=== PATIENT | female | born 1950 | race Caucasian/White ===

== ENCOUNTER 2023-03-15 14:16 | Emergency (ER) | payer OTHER ==
--- OUTSIDE RECORDS SUMMARY | 2023-03-15 14:19 | XMS REPORT | Continuity of Care Document ---
:1950 Author Organization [facility] t Address [address] [place] [address] [address] [place] [address] Care Team Providers Name Role Phone Tamara Malone Attending Clinician Unavailable Izaiah Hilliard Attending Clinician Unavailable KAE WELLS Attending Clinician Unavailable Claudy Mcneil Admitting Clinician Unavailable Physician, No Primary or Family Admitting Clinician Unavaila ble Payers Payer Name Policy Type Policy Number Effective Date Expiration Date S ource Problems This patient has no known problems. Allergies, Adverse Reactions, Alerts Allergy Allergy Status Severity Reaction(s) Onset Inactive Treating Comm ents Source Name Type Date Date Clinician codeine DA Active [place] ITCHY 2021-0 [facility] 8-07 [facility] 00:00: Elaine [facility] codeine DA Active [place] [facility] 1- [place] 00:00: Elaine [facility] codeine DA Active [place] [facility] [facility] 12-02 [facility] 00:00: Elaine [facility] codeine DA Active [place] 2019-0 [facility] 3-25 [facility] 00:00: Elaine [facility] codeine DA Active [place] [facility] [facility] 3- [place] 00:00: Elaine[address] codeine DA Active [place] 2019-0 [facility] 3-29 [facility] 00:00: [facility] codeine DA Active [place] [facility] 2018-0 [facility] 3-29 Corpus 00:00: [facility] phenazop DA Active [place] 2015-0 [facility] yridine 08-03 Corp[facility] 00:00: [facility] codeine DA Active [place] 2015-0 [facility] 9- Corp[place] 00:00: [facility] Medications This patient has no known medications. Procedures This patient has no known procedures. Encounters Start End Encounter Admission Attending Care Care Encounter Source Date/Time Date/Time Type Type Clinicians Facility Department ID 2022-06-10 2022-06-10 Emergency EM [place], [facility] [id number] [facility] 13:54:00 17:31:00 Tamara [id number] [facility] 2022-06-10 2022-06-10 Emergency EM [place], [facility] ER [id number] [facility] 13:54:00 17:31:00 Tamara 09 [facility] 2022-02-06 2022-02-07 Emergency EM [facility], [facility] ER [id number] [facility] 17:40:00 00:35:00 Izaiah 46 [facility] 2020-12-02 2020-12-05 Inpatient [facility] ER [id number] [facility] 15:54:00 01:14:01 81 [facility] 2020-10-17 2020-10-20 Inpatient [facility] ER [id number] [facility] 14:51:00 00:12:54 66 [facility] 2020-01-27 2020-02-03 Inpatient [facility] ER [id number] [facility] 13:01:00 13:28:27 08 [facility] 2019-11-23 2019-11-23 Outpatient EL PRISCILLA, [facility] [id number] [facility] 15:19:00 15:19:00 KAE 39 [facility] 2019-11-11 2019-11-19 Inpatient [facility] ER [id number] [facility] 16:35:00 08:30:43 20 [facility] Results Test Description Test Time Test Comments Results Result Comments Source BASIC METABOLIC PANEL 2022-06-10 16:26:00 Test Item Value Reference Range Interpretation Comme nts SODIUM (test code = NA) 138 MMOL/L 133-145 N POTASSIUM (test code = K) 4.1 MMOL/L 3.6-5.2 N CHLORIDE (test code = CL) 102 MMOL/L 100-108 N CARBON DIOXIDE (test code = 28 MMOL/L 22-32 N CO2) GLUCOSE (test code = GLU) 102 MG/DL 65-99 H Re sults of this assay method may be falsely depressed orelevated if p atient is taking sulfasalazine. BLOOD UREA NITROGEN (test code 15 MG/DL 6-20 N = BUN) GLOMERULAR FILTRATION RATE 53 39-90 N R eporting units: (test code = GFR) mL/min/1.7 3m\\S\\2 (Modified MDRD Formula) CREATININE (test code = CREAT) 1.02 MG/DL 0.60-1.00 H CALCIUM (test code = CA) 8.8 MG/DL 8.7-10.5 N [id number] 16:26:00 Test Item Value Reference Range Interpretation Comments LIPASE (test code = LIP) 138 Units/L 73-393 N [id number] 16:26:00 Test Item Value Reference Range Interpretation Comments MAGNESIUM (test code = MAG) 1.8 MG/DL 1.8-2.4 N NT PRO-BRAIN NATRIURETIC [id number] 16:26:00 Test Item Value Reference Range Interpretation Comments NT PRO-BRAIN 95 PG/ML 0-125 N Results of this assay NATRIURETIC PEPTI (test meth od may be falsely code = PROBNP) depressed ore levated if patient is t aking high doses of B iotin. TROP-I HIGH [id number] 16:26:00 Test Item Value Reference Range Interpretation Comments TROP-I HIGH 6 ng/L < 51 Results above 51 for SENSITIVITY (test code femal es and 76 for males = TROPIHS) are consistent with IFCC Committee recom mendations to use the 99th percentile of a normal population as a reference decision-limit. - The use of serial sampl ing and testing protoco l is a recommended pra ctive.- An elevated high sensitiveity tr oponin level alone is often not sufficient for diagnosis of myocardial infarction.- In order to distinguish acu te elevations of h igh sensitivity tro ponin from other clinical conditions, the [place] Defin ition of Myocardial Infa rction stresses clinic al assessment and demonstration o f a rise and/or fall in serial troponin result s above the upper refer ence limit.Results o f this assay method ma y be falsely depress ed orelevated if p atient is taking high dos es of Biotin. Coronavirus 2019 nCoV [id number] 15:53:00 Test Item Value Reference Range Interpretation Comments Coronavirus 2019 Negative Negative ID NOW COVI D-19 assay nCoV Bedside (test performed on the ID NOW code = [id number]) Instrum ent kristel rapid molecular in vi tro diagnostic test utilizing anisothermal nu cleic acid amplification t echnology intendedfor the qualitative det ection of nucleic acid fr om ptcBXFU-[id number]-4 v iral RNA in direct nasal , nasopharyngeal orthroat swabs and nasal , nasopharyngeal or throat swabseluted in viral transport media from individuals who aresuspected of COVID-19 by their health care provider. Negat jaret results should be treated as presumptive and, ifinconsistent with clinical signs and symptoms or nec essaryfor patient managem ent, should be teste d with differentauthor ized or cleared molecul ar tests. Negative result s donot preclude SARS-C oV-2 infection and s hould not be used asthe s ole basis for patient man agement decisions. Negativeresults should be considered in t he context of a patient'sr ecent exposures, hist ory and presence of cli nical signs andsympto ms consistent with COVID-19.Result s are for the identificat ion of SARS-CoV-2 RNA. For Use Under an Emerge ncy Use Authorization ( EUA) Only Negative result s do not preclude SARS-C oV-2 infection andsh ould not be used as the sole basis for patient managementdecis ions. Negative result s must be combined with clinicalobserva tions, patient history , and epidemiological informatio n. CBC W/AUTO [id number] 15:49:00 Test Item Value Reference Range Interpretation Comments WHITE BLOOD CELL (test code = 5.75 x10 3/uL 4.80-10.80 N WBC) RED BLOOD CELL (test code = 4.61 x10 6/uL 4.2-5.4 N RBC) HEMOGLOBIN (test code = HGB) 13.4 G/DL 12.0-16.0 N HEMATOCRIT (test code = HCT) 40.7 % 37-47 N MEAN CELL VOLUME (test code = 88.3 FL 81-99 N MCV) MEAN CELL HGB (test code = MCH) 29.1 PG 27-31 N MEAN CELL HGB CONCENTRATION 32.9 G/DL 33-37 L (test code = MCHC) RED CELL DISTRIBUTION WIDTH 15.2 % 11.5-14.5 H (test code = RDW) PLATELET COUNT (test code = 171 x10 3/uL 150-450 N PLT) MEAN PLATELET VOLUME (test code 10.4 FL 7.4-10.4 N = MPV) NEUTROPHIL % (test code = NT%) 63.0 % 42-86 N IMMATURE GRANULOCYTE % (test 0.3 % 0.0-2.0 N code = IG%) LYMPHOCYTE % (test code = LY%) 19.1 % 24-44 L MONOCYTE % (test code = MO%) 15.5 % 0.0-4.0 H EOSINOPHIL % (test code = EO%) 1.4 % 0.0-2.7 N BASOPHIL % (test code = BA%) 0.7 % 0.0-0.5 H NUCLEATED RBC % (test code = 0.0 % 0.0-0.0 N NRBC%) NEUTROPHIL # (test code = NT#) 3.62 x10 3/uL 1.8-7.7 N IMMATURE GRANULOCYTE # (test 0.02 x10 3/uL 0.00-0.03 N code = IG#) LYMPHOCYTE # (test code = LY#) 1.10 x10 3/uL 1.0-4.8 N MONOCYTE # (test code = MO#) 0.89 x10 3/uL 0.0-0.8 H EOSINOPHIL # (test code = EO#) 0.08 x10 3/uL 0.0-0.5 N BASOPHIL # (test code = BA#) 0.04 x10 3/uL 0.0-0.2 N NUCLEATED RBC # (test code = 0.0 X10 3/uL 0.0-0.2 N NRBC#) - XR CHEST 1 [id number] 14:52:00 [facility] 1950 Sex: F Patient Name: VENKAT PANDEY Unit No: [id number] EXAMS: CPT CODE: [id number] XR CHEST 1 V 48907 Reason: SOB EXAM: - XR CHEST 1 V COMPARISON: None available at the time of interpretation. LOCATION: HISTORY: SOB FINDINGS: Single view of the chest. No indwelling lines or tubes. No pneumothorax. The lungs are clear without significant effusions. The mediastinal contours are unremarkable/unchanged. No acute osseous findings are present. IMPRESSION: No acute cardiopulmonary abnormality. at 1452 Reported and signed by: Dedrick Preston MD CC: Odalys MONTERROSO; Tamara Malone MD Technologist: Huyen Ryder (Krista) RT Trscrpt Dt/ (1452)t.SDR.HV2 Orig Print D/T: S: 06/10/2022 (1455) [facility] NAME: VENKAT PANDEY [address]: Tamara [place] [address] : 1950 AGE: 71 SEX: F LOC: [place] PHONE #: [phone] EXAM DATE: 06/10/2022 STATUS: PRE ER FAX #: RAD NO: DC D t: PAGE 1 Signed Report- CT MAXIFAC W/O [id number] 21:07:00 [facility] : 1950 Sex: F Patient Name: VENKAT PANDEY Unit No: [id number] Report Has Been Amended EXAMS: CPT CODE: [id number] [place] MAXIFAC [place] [address] Reason: contusion of face Addendum - 02/06/2022 SIGNED 02/06/2022 ADDENDUM: [id number] CT/[id number] Addendum: Three-D reformatted images are provided after original interpretation. Additional 3-D volume rendered images do not change the original interpretation. at 2107 Reported and signed by: Tim Mead MD Report EXAM: CT FACIAL BONES WITHOUT CONTRAST INDICATION: CONTUSION OF FACE COMPARISON: None available TECHNIQUE: Axial CT imaging of the facial bones was obtained without administration of intravenous contrast. Coronal and sagittal reconstructions were submitted for review. IV contrast: None. DLP: 2120.97 mGy-cm DISCUSSION: No acute fracture is identified. There is a lucency throughthe left coronoid process which may represent an age-indeterminate fracture. The temporomandibular joints are well-aligned. The nasal bones are normal. The nasal septum is intact and deviated to the right. There is mild soft tissue thickening within the nasal cavity. The paranasal sinuses and mastoidair cells are clear. The orbits and globes are intact. There is no intraconal hematoma. No soft tissue abnormality or radiopaque foreign body is identified. IMPRESSION: Age-indeterminate fracture of the left coronary process of the mandible. Otherwise the mandible is unremarkable with normal-appearing temporomandibular joints. Rightward deviation of the nasal septum. LOCATION: B2 This CT exam was performed according to our departmental dose optimization program, which includes automated exposure con trol, adjustment of the mA and or kV according to patient size and/or use of [facility] NAME: VENKAT PANDEY [address]: [place] [address] : 1950 AGE: 71 SEX: F LOC: [place] PHONE #: [phone] EXAM DATE: 02/06/2022 STATUS: REG ER FAX #: RAD NO: DC Dt: PAGE 1 Signed Report (CONTINUED) Patient Name: VENKAT PANDEY Unit No: [id number] Report Has Been Amended EXAMS: CPT CODE: [id number] CT MAXIFAC [place] [address] (Continued) Reason: contusion of face iterative reconstruction technique. at 1833 Reported and signed by: Niru Blackmon MD CC: Claudy Mcneil MD; Mary Huerta DO Technologist: Elodia Troncoso CT; Janel Mena CT Trscrpt Dt/ (1833)t16 Orig Print D/T: S: 02/06/2022 (183) CTDI: DLP: [facility] NAME: VENKAT PANDEY [address]: [place] [address] : 1950 AGE: 71 SEX: F LOC: [place] PHONE #: [phone] EXAM DATE: 02/06/2022 STATUS: REG ER FAX #: RAD NO: DC Dt: PAGE 2 Signed Report- CT MAXIFAC W/O [id number] 21:05:00[facility] : 1950 Sex: F Patient Name: VENKAT PANDEY Unit No: [id number] EXAMS: CPT CODE: [id number] CT MAXIFAC W/O CNT 56958 Reason: trauma EXAM: - CT MAXIFAC W/O CNT HISTORY: trauma Location code:C3 COMPARISON: Concurrent maxillofacial CT TECHNIQUE: Multiple axial CT images were obtained of the mandible without the use of IVcontrast. Panorex reformatted image is provided. One or more of the following dose reduction techniques were used: Automated exposure control, adjustment of the mA and/or kV according to patient size, and/or utilization of iterative reconstruction technique. IMPRESSION: Agent round lucency/fracture ofthe left coronoid process of the mandible is again seen. No additional fractures or malalignment. at 2105 Reported and signed by: Tim Mead MD CC: Fidencio Ventura Jr, MD; Claudy Mcneil MD; Izaiah Hilliard MD Technologist: Tom Farley RT; Paula HERNANDES Trscrpt Dt/ (2104)tILIAR.[email or web address] Orig Print D/T: S: 02/06/2022 (2107) CTDI: DLP: [facility] NAME: VENKAT PANDEY [address] [facility] PHYS: [place] [address] : 1950 AGE: 71 SEX: F LOC: [place] PHONE #: [phone] EXAM DATE: 02/06/2022 STATUS: REG ER FAX #: RAD NO: DC Dt: PAGE 1 SignedReportCoronavirus 2019 nCoV [id number] 19:24:00 Test Item Value Reference Range Interpretation Comments Coronavirus 2019 Negative Negative ID NOW COVI D-19 assay nCoV Bedside (test performed on the ID NOW code = [id number]) Instrum ent kristel rapid molecular in vi tro diagnostic test utilizing anisothermal nu cleic acid amplification t echnology intendedfor the qualitative det ection of nucleic acid fr om eprYRJP-YqK-4 v iral RNA in direct nasal , nasopharyngeal orthroat swabs and nasal , nasopharyngeal or throat swabseluted in viral transport media from individuals who aresuspected of COVID-19 by their health care provider. Negat jaret results should be treated as presumptive and, ifinconsistent with clinical signs and symptoms or nec essaryfor patient managem ent, should be teste d with differentauthor ized or cleared molecul ar tests. Negative result s donot preclude SARS-C oV-2 infection and s hould not be used asthe s ole basis for patient man agement decisions. Negativeresults should be considered in t he context of a patient'sr ecent exposures, hist ory and presence of cli nical signs andsympto ms consistent with COVID-19.Result s are for the identificat ion of SARS-CoV-2 RNA. For Use Under an Emerge ncy Use Authorization ( EUA) Only Negative result s do not preclude SARS-C oV-2 infection andsh ould not be used as the sole basis for patient managementdecis ions. Negative result s must be combined with clinicalobserva tions, patient history , and epidemiological informatio n. COMPREHENSIVE METABOLIC [id number] 18:51:00 Test Item Value Reference Range Interpretation Comments SODIUM (test code = 140 MMOL/L 133-145 N NA) POTASSIUM (test code = 4.0 MMOL/L 3.6-5.2 N K) CHLORIDE (test code = 105 MMOL/L 100-108 N CL) CARBON DIOXIDE (test 26 MMOL/L 22-32 N code = CO2) GLUCOSE (test code = 109 MG/DL 65-99 H Results of this GLU) assay method ma y be falsely depress ed orelevated if patient is taki ng sulfasalazine. BLOOD UREA NITROGEN 12 MG/DL 6-20 N (test code = BUN) GLOMERULAR FILTRATION 81 39-90 N Report ing units: RATE (test code = GFR) mL/mi n/1.73m\\S\\2 (Modified MDRD Formula) CREATININE (test code 0.71 MG/DL 0.60-1.00 N = CREAT) TOTAL PROTEIN (test 6.4 G/DL 6.4-8.2 N code = PROT) ALBUMIN (test code = 2.9 G/DL 3.4-5.0 L ALB) GLOBULIN (test code = 3.5 G/DL 1.5-3.8 N GLOB) ALBUMIN/GLOBULIN RATIO 0.8 1.1-2.2 L (test code = A/G) CALCIUM (test code = 8.5 MG/DL 8.7-10.5 L CA) BILIRUBIN TOTAL (test 0.5 MG/DL 0.0-1.0 N code = BILT) SGOT/AST (test code = 23 Units/L 15-37 N Result s of this AST) assay method ma y be falsely depress ed orelevated if patient is taki ng sulfasalazine. SGPT/ALT (test code = 35 Units/L 30-65 N Result s of this ALT) assay method ma y be falsely depress ed orelevated if patient is taki ng sulfasalazine. ALKALINE PHOSPHATASE 142 Units/L 50-136 H TOTAL (test code = ALKP) - CT C-SPINE W/O [id number] 18:36:00 [facility] : 1950 Sex: F Patient Name: VENKAT PANDEY Unit No: [id number] EXAMS: CPT CODE: [id number] CT C-SPINE W/O CONT 21182 Reason: neck pain CT cervical spine without contrast Location Code: S17 HISTORY: Fall, on blood thinners COMMENT: Multidetector noncontrast slices through the cervical spine were obtained without intravenous contrast and sagittal and coronal reformatting performed. Dose lowering technique with automatic exposure control utilized. The bony cervical canal is intact with no evidence of cervical spine fracture. There is normal vertebral body alignment and vertebral body height. Mild disc space narrowingat C5-6 No soft tissue swelling is present. C2-3: There is a normal diameter spinal canal with no sig nificant spinal or neuroforaminal stenosis. C3-4: There is a normal diameter spinal canal with no significant spinal or neuroforaminal stenosis. C4-5: There is a normal diameter spinal canal with no significant spinal or neuroforaminal stenosis. C5-6: Mild uncinate and facet arthrosis mildly narrow the foramina. Patent canal. C6-7: There is a normal diameter spinal canal with no significant spinal orneuroforaminal stenosis. C7-T1: There is a normal diameter spinal canal with no significant spinal or neuroforaminal stenosis. Biapical scarring incidentally noted. IMPRESSION: 1. No acute osseous abnormality. 2. Mild spondylosis at C5-6. at 1836 Reported and signed by: Matt Lomeli MD [facility] NAME: VENKAT PANDEY [address]: [address] - [place] [address] : 1950 AGE: 71 SEX: F LOC: [place] PHONE #: [phone] EXAM DATE: 02/06/2022 STATUS: REG ER FAX #: RAD NO: DC Dt: PAGE 1 Signed Report (CONTINUED) Patient Name: VENKAT PANDEY Unit No: [id number] EXAMS: CPT CODE: [id number] CT C-SPINE W/O CONT 18021 (Continued) Reason: neck pain CC: Claudy Mcneil MD; Mary Huerta DO Technologist: Elodia Troncoso CT; AMILCAR Larios Trscrpt Dt/ (1835)CindyRK5 OrigPrint D/T: S: 02/06/2022 (183) CTDI: DLP: [facility] NAME: VENKAT PANDEY [address]: [address] [place] [address] : 1950 AGE: 71 SEX: F LOC: [place] PHONE #: [phone] EXAM DATE: 02/06/2022 STATUS: REG ER FAX #: RAD NO: DC Dt: PAGE 2Signed Report- XR HAND 2 V [id number] 18:34:00[facility] : 1950 Sex: F Patient Name: VENKAT PANDEY Unit No: [id number] EXAMS: CPT CODE: [id number] XR HAND 2 [place] [address] Reason: fall on blood thinner EXAM: - XR WRIST 2 VIEWS LT, - XR HAND 2 V LT HISTORY: fall on blood thinnerLocation code:C3 COMPARISON: None available time of interpretation. FINDINGS: Frontal and lateral view of the left hand and wrist is provided. There is no acute fracture or malalignment. The joint spaces are preserved. The osseous structures are intact. IMPRESSION: No acute osseous abnormality. at 1834 Reported and signed by: Tim Mead MD CC: Claudy Mcneil MD; Mary Huerta DO; Jane Vallejo NP; Aba Chapman MD Technologist: Tom Farley, RT Trscrpt Dt/ (1833)CindyCB5 Orig Print D/T: S:02/06/2022 (1836) [facility] NAME: VENKAT PANDEY [address]: [id number] [place] [place] [address] : 1950 AGE: 71 SEX: F LOC: [place] PHONE #: [phone] EXAM DATE: 02/06/2022 STATUS: REG ER FAX #: RAD NO: DC Dt: PAGE 1 Signed Report- XR WRIST 2 VIEWS [id number] 18:34:00 [facility] : 1950 Sex: F Patient Name: VENKAT PANDEY Unit No: [id number] EXAMS: CPT CODE: [id number] XR WRIST [address] [place] [address] Reason: fall on blood thinner EXAM: - XR WRIST 2 VIEWS LT, - XR HAND 2 V LT HISTORY: fall on blood thinner Location code:C3 COMPARISON: None available time of interpretation. FINDINGS: Frontal and lateral view of the left hand and wrist is provided. There is no acute fracture or malalignment. The joint spaces are preserved. The osseous structures are intact. IMPRESSION: No acute osseous abnormality. at 1834 Reported and signed by: Tim Mead MD CC: Claudy Mcneil MD; Mary Huerta DO; Jane Vallejo NP; Aba Chapman MD Technologist: Paula Garcia RT Trscrpt Dt/ (1833)CindyCB5 Orig Print D/T: S: 02/06/2022 (1836) [facility] NAME: VENKAT PANDEY [address]: [place] [address] : 1950 AGE: 71 SEX: F LOC: [place] PHONE #: [phone] EXAM DATE: 02/06/2022 STATUS: REG ER FAX #: RAD NO: DC Dt: PAGE 1 Signed Report- CT CHEST W/[id number] 18:33:00 [facility] : 1950 Sex: F Patient Name: VENKAT PANDEY Unit No: [id number] EXAMS: CPT CODE: [id number] CT CHEST W/CONTRAST 81451 Reason: fall on blood thinner EXAM: - CT CHEST W/CONTRAST HISTORY: fall on blood thinner Location code:C3 TECHNIQUE: Axial tomograms through the chest were obtained after intravenous contrast. Coronal and sagittal reformatted images are provided. Automated exposure reduction (Auto mA/Smart mA) was utilized in compliance with ACR Image Wisely. COMPARISON: 12/02/2020 Statement: Please note that simple renal cysts or adrenal adenomas are benign and no further imaging follow-up is necessary. FINDINGS: LUNGS: Dependent atelectasis is seen without acute consolidation. PLEURA: No pleural effusion or pneumothorax. VASCULATURE: Vascular calcifications involve the aorta and coronary arteries without thoracic aortic dissection or aneurysm. TRACHEOBRONCHIAL TREE: The trachea and lobar bronchi are unremarkable. LYMPHATICS: There is no mediastinal, hilar, or axillary adenopathy. VISUALIZED ABDOMEN: Cholecystectomy clips are present. Areas of cortical scarring involving the left kidney are partially imaged. BONES: No acute osseous findings. Degenerative features involve the spine. SOFT TISSUES: Unremarkable. O THER: Bilateral breast implants are present. IMPRESSION: 1. Dependent atelectasis with other chronicfindings as above. at 1833 Reported and signed by: Tim Mead MD CC: Claudy Mcneil MD; Mary Huerta DO; Jane Vallejo TYPE COPYIST; Aba Chapman MD Technologist: AMILCAR Xiao; AMILCAR Larios Trscrpt Dt/ (1832)t.SDR.CB5 Orig Print D/T: S: 02/06/2022 (1835) CTDI: DLP: [facility] NAME: VENKAT PANDEY [address] [facility] PHYS: [place] [address] : 1950 AGE: 71 SEX: F LOC: [place] PHONE #: [phone] EXAM DATE: 02/06/2022 STATUS: REG ER FAX #: RAD NO: DC Dt: PAGE 1 Signed Report- XR KNEE 4+V [id number] 18:28:00[facility] : 1950 Sex: F Patient Name: VENKAT PANDEY Unit No: [id number] EXAMS: CPT CODE: [id number] XR KNEE 4+V RT [address] Reason: FALL X-ray right knee. INDICATION: Pain FINDINGS: No priors. No evidence of an acute fracture or dislocation. Moderate medial and patellofemoral compartment joint space narrowing. Small joint effusion seen. IMPRESSION: 1. No acute osseous abnormality. 2. Moderate medial compartment arthritis. Elec tronically Signed by Matt Lomeli MD on 02/06/2022 at 1828 Reported and signed by: Matt Lomeli MD CC:Claudy Mcneil MD; Mary Huerta DO Technologist: Tom Farley RT Trscrpt Dt/ (1827)[email or web address] Orig Print D/T: S: 02/06/2022 (183) [facility] NAME: VENKAT PANDEY [address]: [address] - [address] [place] [address] : 1950 AGE: 71 SEX: F LOC: [place] PHONE #: [phone] EXAM DATE: 02/06/2022 STATUS: REG ER FAX #: RAD NO: DC Dt: PAGE 1 Signed Report- CT HEAD/BRAIN W/O CONT 2022-02-06 18:27:00 [facility] : 1950 Sex: F Patient Name: VENKAT PANDEY Unit No: [id number] EXAMS: CPT CODE: [id number] CT HEAD/BRAIN W/O CONT 53340 Reason: headache HISTORY: Headache, fall, on blood thinners Location code: B2 TECHNIQUE: Contiguous 5 mm axial images of the head were obtained from the skullbase to the vertex. Dose lowering technique with automatic exposure control utilized. FINDINGS: There is mild central and cortical atrophy. Mild areas of decreased attenuation are seen in the subcortical and periventricular white matter consistent with chronic microvascular ischemic changes. There is no space-occupying mass, mass effect or midline shift. No intra-axial or extra- axial fluid accumulation is seen. Small lucency by the right nasal bone noted anteriorly. No calvarial osseous or scalp soft tissue abnormalities are noted. IMPRESSION: 1. No acute intracranial process. 2. Mild senescent changes. 3. Small lucency by the right nasalbone anteriorly could represent a fracture, however, will be better evaluated on the accompanying maxillofacial CT at 1827 Reported and signedby: Matt Lomeli MD CC: Claudy Mcneil MD; Mary Huerta DO Technologist: Elodia Troncoso, CT; AMILCAR Larios Trscrpt Dt/ (1826)[email or web address] Orig Print D/T: S: 02/06/2022 (1829) CTDI:DLP: [facility] NAME: VENKAT PANDEY [address] [facility] [facility] PHYS: [place] [address] : 1950 AGE: 71 SEX: F LOC: [place] PHONE #: [phone] EXAM DATE: 02/06/2022 STATUS: REG ER FAX #: RAD NO: DC Dt: PAGE 1 Signed ReportPROTHROMBIN [id number] 18:23:00 Test Item Value Reference Range Interpretation Comments PROTHROMBIN TIME 17.8 SECONDS 9.6-12.3 H PATIENT (test code = PTP) INTERNATIONAL NORMAL 1.57 Recomme nded INR range RATIO (test code = (warfarin therapy): INR) 2.0 - 3.0INR (International Normalized Rati o) should beused w hen interpreting or al anticoaglulant therapy. For at rial fibrillation an d treatment orprevention of deep vein thrombosis . Patients with Palmaz-Olivia s tent *: 2.0 - 3.0 Pa tients with mechanical heart valve *: 2.5 - 3.5 Patients with flex-stent *: 3 .0 - 4.0(*) = historic site administrator's suggested range Is patient on anticoagulants? Pradaxa- XR PELVIS 1/2 [id number] 18:07:00 [facility] : 1950 Sex: F Patient Name: VENKAT PANDEY Unit No: [id number] EXAMS: CPT CODE: [id number] XR PELVIS 1/2 VIEWS 12375 Reason: FALL EXAM: - XR PELVIS 1/2 VIEWS HISTORY: FALL Location code:C3 COMPARISON: 08/01/2016 FINDINGS: Single AP view of the pelvis is provided. Stent graft in the left iliac region is present. No acute fracture, dislocation, or other acute osseous abnormality is demonstrated. The femoral heads are located. IMPRESSION: 1. No fracture or other acute osseous abnormality identified. at 1807 Reported and signed by: Tim Mead MD CC: Claudy Mcneil MD; Mary Huerta DO Technologist: Tom Farley RT; Paula Garcia RT Trscrpt Dt/ (1806)[email or web address] Orig Print D/T: S: 02/06/2022 (1810) [facility] NAME: VENKAT PANDEY [address] PHYS: [place] [address] : 1950 AGE: 71 SEX: F LOC: [place] PHONE #: [phone] EXAM DATE: 02/06/2022 STATUS: PRE ER FAX #: RAD NO: DC Dt: PAGE 1 Signed ReportSELECT [facility]TY [facility]ITAL W/AUTO [id number] 18:05:00 Test Item Value Reference Range Interpretation Comments WHITE BLOOD CELL (test code = 4.89 x10 3/uL 4.80-10.80 N WBC) RED BLOOD CELL (test code = 4.04 x10 6/uL 4.2-5.4 L RBC) HEMOGLOBIN (test code = HGB) 12.1 G/DL 12.0-16.0 N HEMATOCRIT (test code = HCT) 35.9 % 37-47 L MEAN CELL VOLUME (test code = 88.9 FL 81-99 N MCV) MEAN CELL HGB (test code = MCH) 30.0 PG 27-31 N MEAN CELL HGB CONCENTRATION 33.7 G/DL 33-37 N (test code = MCHC) RED CELL DISTRIBUTION WIDTH 13.7 % 11.5-14.5 N (test code = RDW) PLATELET COUNT (test code = 169 x10 3/uL 150-450 N PLT) MEAN PLATELET VOLUME (test code 10.4 FL 7.4-10.4 N = MPV) NEUTROPHIL % (test code = NT%) 44.6 % 42-86 N IMMATURE GRANULOCYTE % (test 0.4 % 0.0-2.0 N code = IG%) LYMPHOCYTE % (test code = LY%) 36.4 % 24-44 N MONOCYTE % (test code = MO%) 12.5 % 0.0-4.0 H EOSINOPHIL % (test code = EO%) 5.3 % 0.0-2.7 H BASOPHIL % (test code = BA%) 0.8 % 0.0-0.5 H NUCLEATED RBC % (test code = 0.0 % 0.0-0.0 N NRBC%) NEUTROPHIL # (test code = NT#) 2.18 x10 3/uL 1.8-7.7 N IMMATURE GRANULOCYTE # (test 0.02 x10 3/uL 0.00-0.03 N code = IG#) LYMPHOCYTE # (test code = LY#) 1.78 x10 3/uL 1.0-4.8 N MONOCYTE # (test code = MO#) 0.61 x10 3/uL 0.0-0.8 N EOSINOPHIL # (test code = EO#) 0.26 x10 3/uL 0.0-0.5 N BASOPHIL # (test code = BA#) 0.04 x10 3/uL 0.0-0.2 N NUCLEATED RBC # (test code = 0.0 X10 3/uL 0.0-0.2 N NRBC#) - XR CHEST 1 [id number] 18:02:00 [facility] : 1950 Sex: F Patient Name: VENKAT PANDEY Unit No: [id number] EXAMS: CPT CODE: [id number] XR CHEST 1 V 08733 Reason: chest trauma HISTORY: Chest trauma Location code: B2 FINDINGS: Frontal view of the chest demonstrates an enlarged cardiomediastinal silhouette, with central venous congestion. The trachea is midline. The lungs are clear. There is no effusion or pneumothorax. Degenerative changes in the bones. IMPRESSION: Mild cardiomegaly and central venous congestion at 1802 Reported and signed by: Matt Lomeli MD CC: Claudy Mcneil MD; Mary Huerta DOTechnologist: Tom Farley RT; Paula HERNANDES Trscrpt Dt/ (1801)[email or web address] Orig Pr int D/T: S: 02/06/2022 (1804) [facility] NAME: VENKAT PANDEY [address] PHYS: [place] [address] : 1950 AGE: 71 SEX: F LOC: [place] PHONE #: [phone] EXAM DATE: 02/06/2022 STATUS: PRE ER FAX #: RAD NO: DC Dt: PAGE 1 Signed ReportTROPONIN-I 2020-12-02 18:59:00 Test Item Value Reference Range Interpretation Comments TROPONIN-I (test < 0.04 NG/ML 0.00-0.06 N - The use of serial code = TROPI) sampling and t esting protocol is a recommended pra ctice.- An elevated tro ponin level alone is often not sufficient for diagnosis of myocardial infarction.Resu lts of this assay meth od may be falsely depress ed orelevated if p atient is taking high dos es of Biotin. - CTA CHEST FOR [id number] 17:58:00 [facility] : 1950 Sex: F Patient Name: VENKAT PANDEY Unit No: [id number] EXAMS: CPT CODE: [id number] [place] [address] Reason: chest pain, h/o DVT History: chest pain, h/o DVT. Technique: Post contrast images of the chest are obtained, with detailed contrast images with two-dimensional and coronal reconstructed images. Intravenous administration of 60 cc [id number] was used according to the CT pulmonary angiogram protocol. 2-D and 3-D reconstructions performed. Comparison: Chest x-ray 12/02/2020 Findings: No filling defects within the central pulmonary arteries. The main pulmonary artery is upper limits of normal for size. The heart is also enlarged, without pericardial effusion. The aorta is mildly atherosclerotic, without ectasia. There is mild pulmonary venous congestion. There is a 1 cm noncalcified pulmonary nodule in the right upper lobe (series 9, image 55). There is mild mosaic attenuation of the lungs. Bandlike subpleural densities in the bilateral lung bases most likely represent atelectasis. No consolidation. Airways and pleura are unremarkable. No mediastinal, hilar, or axillary adenopathy. Visualized upper abdomen unremarkable. Bones are mildly demineralized. Impression: 1. No CT evidence for pulmonary embolism. 2. Cardiomegaly with associated mild pulmonary venous congestion. 3. Mild mosaic attenuation of the lungs. This is nonspecific but may be related to atypical pulmonary edema. 4. Incidental 1cm noncalcified pulmonary nodule in the right upper lobe. Recommend comparison to prior outside CT chest if available. If not available, recommend nonemergent PET/CT to exclude malignancy. at 1758 Reported and signed by: Jamarcus Ennis MD CC: Phil Samayoa MD; Claudy Mcneil MD Technologist: Nurys Valenzuela CT Trscrpt Dt/ (294)t.SDR.MMC3 Orig Print D/T: S: 12/02/2020 (6827) CTDI: DLP: [facility] NAME: VENKAT PANDEY [address] [facility] PHYS: HENJU. - Phil Samayoa [facility] [place] [address] : 1950 AGE: 70 SEX:F LOC: [place] PHONE #: [phone] EXAM DATE: 12/02/2020 STATUS: REG ER FAX #:RAD NO: DC Dt: PAGE 1 Signed ReportBASIC METABOLIC [id number] 16:40:00 Test Item Value Reference Range Interpretation Comments SODIUM (test code = 142 MMOL/L 133-145 N NA) POTASSIUM (test code = 3.3 MMOL/L 3.6-5.2 L K) CHLORIDE (test code = 107 MMOL/L 100-108 N CL) CARBON DIOXIDE (test 29 MMOL/L 22-32 N code = CO2) GLUCOSE (test code = 135 MG/DL 65-99 H Results of this assay GLU) method may be f alsely depressed orele vated if patient is t aking sulfasalazine. BLOOD UREA NITROGEN 15 MG/DL 6-20 N (test code = BUN) GLOMERULAR FILTRATION 69 39-90 N Report ing units: RATE (test code = GFR) mL/mi n/1.73m\\S\\2 (Modified MDRD Formula) CREATININE (test code 0.82 MG/DL 0.60-1.00 N = CREAT) CALCIUM (test code = 8.4 MG/DL 8.7-10.5 L CA) [id number] 16:40:00 Test Item Value Reference Range Interpretation Comments TROPONIN-I (test < 0.04 NG/ML 0.00-0.06 N - The use of serial code = TROPI) sampling and t esting protocol is a recommended pra ctice.- An elevated tro ponin level alone is often not sufficient for diagnosis of myocardial infarction.Resu lts of this assay meth od may be falsely depress ed orelevated if p atient is taking high dos es of Biotin. - XR CHEST 1 [id number] 16:28:00 [facility] : 1950 Sex: F Patient Name: VENKAT PANDEY Unit No: [id number] EXAMS: CPT CODE: [id number] XR CHEST 1 V 03538 Reason:chest pain - XR CHEST 1 V 12/02/2020 3:56 PM Indication: Chest pain FINDINGS: Unremoved brassiere and jewelry obscures detail Comparison is made to the films of 10/17/2020. The heart and pulmonary vessels are more prominent than before. Breast implants cause haziness to the bases. IMPRESSION: New pulmonary vascular congestion pattern. at 1628 Reported and signed by: Popeye Casas MD CC: Phil Samayoa MD; Claudy Mcneil MD Technologist:Savanna Figueroa RT Trscrpt Dt/ (0710)CinydPKE Orig Print D/T: S: 12/02/2020 (7484) [facility] NAME: VENKAT PANDEY [address] PHYS: DORI. - Phil [place], [id number] : 1950 AGE: 70 SEX: F LOC: D.[place] PHONE #: [phone] EXAM DATE: 12/02/2020 STATUS: REG ER FAX #: RAD NO: DC Dt: PAGE 1 Signed ReportSELECT SPECIALTY HOSPITAL W/AUTO [id number] 16:17:00 Test Item Value Reference Range Interpretation Comments WHITE BLOOD CELL (test code = 4.73 x10 3/uL 4.80-10.80 L WBC) RED BLOOD CELL (test code = 4.08 x10 6/uL 4.2-5.4 L RBC) HEMOGLOBIN (test code = HGB) 10.5 G/DL 12.0-16.0 L HEMATOCRIT (test code = HCT) 34.1 % 37-47 L MEAN CELL VOLUME (test code = 83.6 FL 81-99 N MCV) MEAN CELL HGB (test code = MCH) 25.7 PG 27-31 L MEAN CELL HGB CONCENTRATION 30.8 G/DL 33-37 L (test code = MCHC) RED CELL DISTRIBUTION WIDTH 15.4 % 11.5-14.5 H (test code = RDW) PLATELET COUNT (test code = 171 x10 3/uL 150-450 N PLT) MEAN PLATELET VOLUME (test code 10.4 FL 7.4-10.4 N = MPV) NEUTROPHIL % (test code = NT%) 54.7 % 42-86 N IMMATURE GRANULOCYTE % (test 0.2 % 0.0-2.0 N code = IG%) LYMPHOCYTE % (test code = LY%) 30.9 % 24-44 N MONOCYTE % (test code = MO%) 10.4 % 0.0-4.0 H EOSINOPHIL % (test code = EO%) 3.4 % 0.0-2.7 H BASOPHIL % (test code = BA%) 0.4 % 0.0-0.5 N NUCLEATED RBC % (test code = 0.0 % 0.0-0.0 N NRBC%) NEUTROPHIL # (test code = NT#) 2.59 x10 3/uL 1.8-7.7 N IMMATURE GRANULOCYTE # (test 0.01 x10 3/uL 0.00-0.03 N code = IG#) LYMPHOCYTE # (test code = LY#) 1.46 x10 3/uL 1.0-4.8 N MONOCYTE # (test code = MO#) 0.49 x10 3/uL 0.0-0.8 N EOSINOPHIL # (test code = EO#) 0.16 x10 3/uL 0.0-0.5 N BASOPHIL # (test code = BA#) 0.02 x10 3/uL 0.0-0.2 N NUCLEATED RBC # (test code = 0.0 X10 3/uL 0.0-0.2 N NRBC#) UA RFLX MICROSCOPIC [id number] 16:55:00 Test Item Value Reference Range Interpretation Comments UA COLOR (test code = COLU) Light-Yellow YELLOW UA APPEARANCE (test code = CLEAR CLEAR APPU) UA GLUCOSE DIPSTICK (test NORMAL mg/dL NEGATIVE code = DGLUU) UA BILIRUBIN DIPSTICK (test NEGATIVE NEGATIVE code = BILU) UA KETONE DIPSTICK (test NEGATIVE mg/dL NEGATIVE code = KETU) UA SPECIFIC GRAVITY (test 1.010 1.001-1.035 N code = SGU) UA BLOOD DIPSTICK (test code NEGATIVE NEGATIVE = IVÁN) UA PH DIPSTICK (test code = 6.5 5.5-7.0 N BOB) UA PROTEIN DIPSTICK (test NEGATIVE mg/dL NEGATIVE code = PROU) UA UROBILINOGEN DIPSTICK NORMAL mg/dL NORMAL (test code = URO) UA NITRITE DIPSTICK (test 2+ NEGATIVE A code = MARGE) UA LEUKOCYTE ESTERASE 75 NEGATIVE A DIPSTICK (test code = LEUU) UA COMMENT (test code = VOLUME 10-12 ML COMU) URINE SPECIMEN DESCRIPTION Clean Catch (test code = UASPEC) UA WBC (test code = WBCU) < 10 #/HPF 0-10 UA SQUAMOUS CELLS (test code 0 - 20 #/LPF <100 = SQU) UA CULTURE NEEDED? (test Criteria not met code = UACULT) Indication for culture: RiskForSepsis-no oth srcURINE SOURCE: Clean CatchUA [id number] 16:55:00 Test Item Value Reference Range Interpretation Comments UA RBC (test code = RBCU) 0-2 #/HPF NONE SEEN Indication for culture: RiskForSepsis-no oth srcURINE SOURCE: Clean CatchUA RFLX MICROSCOPIC [id number] 16:53:00 Test Item Value Reference Range Interpretation Comments UA COLOR (test code = COLU) Light-Yellow YELLOW UA APPEARANCE (test code = CLEAR CLEAR APPU) UA GLUCOSE DIPSTICK (test NORMAL mg/dL NEGATIVE code = DGLUU) UA BILIRUBIN DIPSTICK (test NEGATIVE NEGATIVE code = BILU) UA KETONE DIPSTICK (test code NEGATIVE mg/dL NEGATIVE = KETU) UA SPECIFIC GRAVITY (test 1.010 1.001-1.035 N code = SGU) UA BLOOD DIPSTICK (test code NEGATIVE NEGATIVE = IVÁN) UA PH DIPSTICK (test code = 6.5 5.5-7.0 N BOB) UA PROTEIN DIPSTICK (test NEGATIVE mg/dL NEGATIVE code = PROU) UA UROBILINOGEN DIPSTICK NORMAL mg/dL NORMAL (test code = URO) UA NITRITE DIPSTICK (test 2+ NEGATIVE A code = MARGE) UA LEUKOCYTE ESTERASE 75 NEGATIVE A DIPSTICK (test code = LEUU) UA COMMENT (test code = COMU) VOLUME 10-12 ML URINE SPECIMEN DESCRIPTION Clean Catch (test code = UASPEC) UA WBC (test code = WBCU) #/hpf <10 UA SQUAMOUS CELLS (test code #/lpf <100 = SQU) UA CULTURE NEEDED? (test code = UACULT) Indication for culture: RiskForSepsis-no oth srcURINE SOURCE: Clean CatchUA [id number] 16:53:00 Test Item Value Reference Range Interpretation Comments UA RBC (test code = RBCU) #/HPF NONE SEEN Indication for culture: RiskForSepsis-no oth srcURINE SOURCE: Clean CatchUA RFLX MICROSCOPIC [id number] 16:53:00 Test Item Value Reference Range Interpretation Comments UA COLOR (test code = COLU) Light-Yellow YELLOW UA APPEARANCE (test code = CLEAR CLEAR APPU) UA GLUCOSE DIPSTICK (test NORMAL mg/dL NEGATIVE code = DGLUU) UA BILIRUBIN DIPSTICK (test NEGATIVE NEGATIVE code = BILU) UA KETONE DIPSTICK (test NEGATIVE mg/dL NEGATIVE code = KETU) UA SPECIFIC GRAVITY (test 1.010 1.001-1.035 N code = SGU) UA BLOOD DIPSTICK (test code NEGATIVE NEGATIVE = IVÁN) UA PH DIPSTICK (test code = 6.5 5.5-7.0 N BOB) UA PROTEIN DIPSTICK (test NEGATIVE mg/dL NEGATIVE code = PROU) UA UROBILINOGEN DIPSTICK NORMAL mg/dL NORMAL (test code = URO) UA NITRITE DIPSTICK (test 2+ NEGATIVE A code = MARGE) UA LEUKOCYTE ESTERASE 75 NEGATIVE A DIPSTICK (test code = LEUU) UA COMMENT (test code = VOLUME 10-12 ML COMU) URINE SPECIMEN DESCRIPTION Clean Catch (test code = UASPEC) UA WBC (test code = WBCU) < 10 #/HPF 0-10 UA SQUAMOUS CELLS (test code 0 - 20 #/LPF <100 = SQU) UA CULTURE NEEDED? (test Criteria not met code = UACULT) Indication for culture: RiskForSepsis-no oth srcURINE SOURCE: Clean CatchUA [id number] 16:53:00 Test Item Value Reference Range Interpretation Comments UA RBC (test code = RBCU) #/HPF NONE SEEN Indication for culture: RiskForSepsis-no oth srcURINE SOURCE: Clean CatchUA RFLX MICROSCOPIC [id number] 16:53:00 Test Item Value Reference Range Interpretation Comments UA COLOR (test code = COLU) Light-Yellow YELLOW UA APPEARANCE (test code = CLEAR CLEAR APPU) UA GLUCOSE DIPSTICK (test NORMAL mg/dL NEGATIVE code = DGLUU) UA BILIRUBIN DIPSTICK (test NEGATIVE NEGATIVE code = BILU) UA KETONE DIPSTICK (test code NEGATIVE mg/dL NEGATIVE = KETU) UA SPECIFIC GRAVITY (test 1.010 1.001-1.035 N code = SGU) UA BLOOD DIPSTICK (test code NEGATIVE NEGATIVE = IVÁN) UA PH DIPSTICK (test code = 6.5 5.5-7.0 N BOB) UA PROTEIN DIPSTICK (test NEGATIVE mg/dL NEGATIVE code = PROU) UA UROBILINOGEN DIPSTICK NORMAL mg/dL NORMAL (test code = URO) UA NITRITE DIPSTICK (test 2+ NEGATIVE A code = MARGE) UA LEUKOCYTE ESTERASE 75 NEGATIVE A DIPSTICK (test code = LEUU) UA COMMENT (test code = COMU) VOLUME 10-12 ML URINE SPECIMEN DESCRIPTION Clean Catch (test code = UASPEC) UA WBC (test code = WBCU) #/hpf <10 UA SQUAMOUS CELLS (test code #/lpf <100 = SQU) UA CULTURE NEEDED? (test code = UACULT) Indication for culture: RiskForSepsis-no oth srcURINE SOURCE: Clean CatchUA [id number] 16:53:00 Test Item Value Reference Range Interpretation Comments UA RBC (test code = RBCU) #/HPF NONE SEEN Indication for culture: RiskForSepsis-no oth srcURINE SOURCE: Clean CatchBASIC METABOLIC [id number] 16:09:00 Test Item Value Reference Range Interpretation Comments SODIUM (test code = 142 MMOL/L 133-145 N NA) POTASSIUM (test code = 3.6 MMOL/L 3.6-5.2 N K) CHLORIDE (test code = 107 MMOL/L 100-108 N CL) CARBON DIOXIDE (test 28 MMOL/L 22-32 N code = CO2) GLUCOSE (test code = 87 MG/DL 65-99 N Results of this assay GLU) method may be f alsely depressed orele vated if patient is t aking sulfasalazine. BLOOD UREA NITROGEN 7 MG/DL 6-20 N (test code = BUN) GLOMERULAR FILTRATION 81 39-90 N Report ing units: RATE (test code = GFR) mL/mi n/1.73m\\S\\2 (Modified MDRD Formula) CREATININE (test code 0.71 MG/DL 0.60-1.00 N = CREAT) CALCIUM (test code = 8.8 MG/DL 8.7-10.5 N CA) [id number] 16:09:00 Test Item Value Reference Range Interpretation Comments MAGNESIUM (test code = MAG) 2.0 MG/DL 1.8-2.4 N THYROID STIMULATING [id number] 16:09:00 Test Item Value Reference Range Interpretation Comments THYROID STIMULATING 48.85 0.42-5.47 H Micro-In ternational HORMONE (test code = TSH) Un its/LResults of this assay method ma y be falsely depress ed orelevated if p atient is taking high doses of Biotin. NT PRO-BRAIN NATRIURETIC [id number] 16:09:00 Test Item Value Reference Range Interpretation Comments NT PRO-BRAIN 199 PG/ML 0-125 H Results of this assay NATRIURETIC PEPTI (test meth od may be falsely code = PROBNP) depressed ore levated if patient is t aking high doses of B iotin. [id number] 16:09:00 Test Item Value Reference Range Interpretation Comments TROPONIN-I (test < 0.04 NG/ML 0.00-0.06 N - The use of serial code = TROPI) sampling and t esting protocol is a recommended pra ctice.- An elevated tro ponin level alone is often not sufficient for diagnosis of myocardial infarction.Resu lts of this assay meth od may be falsely depress ed orelevated if p atient is taking high dos es of Biotin. CBC W/AUTO [id number] 15:49:00 Test Item Value Reference Range Interpretation Comments WHITE BLOOD CELL (test code = 3.49 x10 3/uL 4.80-10.80 L WBC) RED BLOOD CELL (test code = 4.34 x10 6/uL 4.2-5.4 N RBC) HEMOGLOBIN (test code = HGB) 11.5 G/DL 12.0-16.0 L HEMATOCRIT (test code = HCT) 36.4 % 37-47 L MEAN CELL VOLUME (test code = 83.9 FL 81-99 N MCV) MEAN CELL HGB (test code = MCH) 26.5 PG 27-31 L MEAN CELL HGB CONCENTRATION 31.6 G/DL 33-37 L (test code = MCHC) RED CELL DISTRIBUTION WIDTH 14.2 % 11.5-14.5 N (test code = RDW) PLATELET COUNT (test code = 210 x10 3/uL 150-450 N PLT) MEAN PLATELET VOLUME (test code 10.0 FL 7.4-10.4 N = MPV) NEUTROPHIL % (test code = NT%) 30.9 % 42-86 L IMMATURE GRANULOCYTE % (test 0.0 % 0.0-2.0 N code = IG%) LYMPHOCYTE % (test code = LY%) 47.9 % 24-44 H MONOCYTE % (test code = MO%) 12.9 % 0.0-4.0 H EOSINOPHIL % (test code = EO%) 6.6 % 0.0-2.7 H BASOPHIL % (test code = BA%) 1.7 % 0.0-0.5 H NUCLEATED RBC % (test code = 0.0 % 0.0-0.0 N NRBC%) NEUTROPHIL # (test code = NT#) 1.08 x10 3/uL 1.8-7.7 L IMMATURE GRANULOCYTE # (test 0.00 x10 3/uL 0.00-0.03 N code = IG#) LYMPHOCYTE # (test code = LY#) 1.67 x10 3/uL 1.0-4.8 N MONOCYTE # (test code = MO#) 0.45 x10 3/uL 0.0-0.8 N EOSINOPHIL # (test code = EO#) 0.23 x10 3/uL 0.0-0.5 N BASOPHIL # (test code = BA#) 0.06 x10 3/uL 0.0-0.2 N NUCLEATED RBC # (test code = 0.0 X10 3/uL 0.0-0.2 N NRBC#) - XR CHEST 1 [id number] 15:36:00 [facility] : 1950 Sex: F Patient Name: VENKAT PANDEY Unit No: [id number] EXAMS: CPT CODE: [id number] XR CHEST 1 V 01669 Reason: SOB - XR CHEST 1 V 10/17/2020 3:09 PM Indication: SOB palpitations FINDINGS: Comparison is made tothe films of 01/27/2020. There has been no significant radiographic change. The heart, lung hutchinson and pleura show no change since the prior examination. IMPRESSION: Stable chest. 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 COMPREHENSIVE METABOLIC [id number] 13:51:00 Test Item Value Reference Range Interpretation Comments SODIUM (test code = 141 MMOL/L 133-145 N NA) POTASSIUM (test code = 3.8 MMOL/L 3.6-5.2 N K) CHLORIDE (test code = 106 MMOL/L 100-108 N CL) CARBON DIOXIDE (test 30 MMOL/L 22-32 N code = CO2) GLUCOSE (test code = 92 MG/DL 65-99 N Results of this GLU) assay method ma y be falsely depress ed orelevated if patient is taki ng sulfasalazine. BLOOD UREA NITROGEN 10 MG/DL 6-20 N (test code = BUN) GLOMERULAR FILTRATION 83 45-104 N Report ing units: RATE (test code = GFR) mL/mi n/1.73m\\S\\2 (Modified MDRD Formula) CREATININE (test code 0.70 MG/DL 0.60-1.00 N = CREAT) TOTAL PROTEIN (test 7.1 G/DL 6.4-8.2 N code = PROT) ALBUMIN (test code = 3.0 G/DL 3.4-5.0 L ALB) GLOBULIN (test code = 4.1 G/DL 1.5-3.8 H GLOB) ALBUMIN/GLOBULIN RATIO 0.7 1.1-2.2 L (test code = A/G) CALCIUM (test code = 9.0 MG/DL 8.7-10.5 N CA) BILIRUBIN TOTAL (test 0.6 MG/DL 0.0-1.0 N code = BILT) SGOT/AST (test code = 27 Units/L 15-37 N Result s of this AST) assay method ma y be falsely depress ed orelevated if patient is taki ng sulfasalazine. SGPT/ALT (test code = 20 Units/L 30-65 L Result s of this ALT) assay method ma y be falsely depress ed orelevated if patient is taki ng sulfasalazine. ALKALINE PHOSPHATASE 154 Units/L 50-136 H TOTAL (test code = ALKP) PROTHROMBIN [id number] 13:50:00 Test Item Value Reference Range Interpretation Comments PROTHROMBIN TIME 18.2 SECONDS 9.6-12.3 H PATIENT (test code = PTP) INTERNATIONAL NORMAL 1.60 Recomme nded INR range RATIO (test code = (warfarin therapy): INR) 2.0 - 3.0INR (International Normalized Rati o) should beused w hen interpreting or al anticoaglulant therapy. For at rial fibrillation an d treatment orprevention of deep vein thrombosis . Patients with Palmaz-Olivia s tent *: 2.0 - 3.0 Pa tients with mechanical heart valve *: 2.5 - 3.5 Patients with flex-stent *: 3 .0 - 4.0(*) = historic site administrator's suggested range Is patient on anticoagulants? UnknownTHROMBOPLASTIN TIME [id number] 13:50:00 Test Item Value Reference Range Interpretation Comments THROMBOPLASTIN TIME 40.1 SECONDS 22.5-35.3 H *Therap eutic level PARTIAL (test code = for hep eladio: 1.5 - PTT) 2.5 times the average patient value of 30.0 seconds. The aP TT tet should not be used to evaluat e low moleculat weigh t heparin anticoagulant therapy. Is patient on anticoagulants? 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 - XR CHEST 1 [id number] 13:37:00 Patient Name: VENKAT PANDEY Unit No: [id number] EXAMS: CPT CODE: [id number] XR CHEST 1 V 29736 Reason: chest pain Single view chest shows heart size at upper limits of normal similar to prior studies. Vasculature is normal. Lung hutchinson are clear without focal consolidation, effusion or pneumothorax. IMPRESSION: No acute cardiopulmonary findings at 1337 Reported and signed by: Rogelio Harmon MD CC: Claudy Mcneil MD; Billy Merida III, DO Technologist: Shawna Olsen RT Trscrpt Dt/ (1337)tCHAGO Orig Print D/T: S: 01/27/2020 (8696) [facility] NAME: VENKAT PANDEY [address] PH[address]: SCHANIKET.Stevo - Billy Merida II [place] [address] : 1950 AGE: 69 SEX: F LOC: [place] PHONE #: [phone] EXAM DATE: 01/27/2020 STATUS: REG ER FAX #: RAD NO: DC Dt: PAGE 1 Signed Report CBC W/AUTO [id number] 13:36:00 Test Item Value Reference Range Interpretation Comments WHITE BLOOD CELL (test code = 4.35 x10 3/uL 4.80-10.80 L WBC) RED BLOOD CELL (test code = 4.01 x10 6/uL 4.2-5.4 L RBC) HEMOGLOBIN (test code = HGB) 11.8 G/DL 12.0-16.0 L HEMATOCRIT (test code = HCT) 36.2 % 37-47 L MEAN CELL VOLUME (test code = 90.3 FL 81-99 N MCV) MEAN CELL HGB (test code = MCH) 29.4 PG 27-31 N MEAN CELL HGB CONCENTRATION 32.6 G/DL 33-37 L (test code = MCHC) RED CELL DISTRIBUTION WIDTH 14.8 % 11.5-14.5 H (test code = RDW) PLATELET COUNT (test code = 171 x10 3/uL 150-450 N PLT) MEAN PLATELET VOLUME (test code 10.0 FL 7.4-10.4 N = MPV) NEUTROPHIL % (test code = NT%) 44.2 % 42-86 N IMMATURE GRANULOCYTE % (test 0.2 % 0.0-2.0 N code = IG%) LYMPHOCYTE % (test code = LY%) 37.5 % 24-44 N MONOCYTE % (test code = MO%) 11.7 % 0.0-4.0 H EOSINOPHIL % (test code = EO%) 5.5 % 0.0-2.7 H BASOPHIL % (test code = BA%) 0.9 % 0.0-0.5 H NUCLEATED RBC % (test code = 0.0 % 0.0-0.0 N NRBC%) NEUTROPHIL # (test code = NT#) 1.92 x10 3/uL 1.8-7.7 N IMMATURE GRANULOCYTE # (test 0.01 x10 3/uL 0.00-0.03 N code = IG#) LYMPHOCYTE # (test code = LY#) 1.63 x10 3/uL 1.0-4.8 N MONOCYTE # (test code = MO#) 0.51 x10 3/uL 0.0-0.8 N EOSINOPHIL # (test code = EO#) 0.24 x10 3/uL 0.0-0.5 N BASOPHIL # (test code = BA#) 0.04 x10 3/uL 0.0-0.2 N NUCLEATED RBC # (test code = 0.0 X10 3/uL 0.0-0.2 N NRBC#) COMPREHENSIVE METABOLIC [id number] 21:52:00 Test Item Value Reference Range Interpretation Comments SODIUM (test code = 139 MMOL/L 133-145 N NA) POTASSIUM (test code = 4.1 MMOL/L 3.6-5.2 N K) CHLORIDE (test code = 106 MMOL/L 100-108 N CL) CARBON DIOXIDE (test 24 MMOL/L 22-32 N code = CO2) GLUCOSE (test code = 113 MG/DL 65-99 H Results of this GLU) assay method ma y be falsely depress ed orelevated if patient is taki ng sulfasalazine. BLOOD UREA NITROGEN 14 MG/DL 6-20 N (test code = BUN) GLOMERULAR FILTRATION 83 45-104 N Report ing units: RATE (test code = GFR) mL/mi n/1.73m\\S\\2 (Modified MDRD Formula) CREATININE (test code 0.70 MG/DL 0.60-1.00 N = CREAT) TOTAL PROTEIN (test 6.4 G/DL 6.4-8.2 N code = PROT) ALBUMIN (test code = 2.9 G/DL 3.4-5.0 L ALB) GLOBULIN (test code = 3.5 G/DL 1.5-3.8 N GLOB) ALBUMIN/GLOBULIN RATIO 0.8 1.1-2.2 L (test code = A/G) CALCIUM (test code = 8.9 MG/DL 8.7-10.5 N CA) BILIRUBIN TOTAL (test 0.8 MG/DL 0.0-1.0 N code = BILT) SGOT/AST (test code = 37 Units/L 15-37 N Result s of this AST) assay method ma y be falsely depress ed orelevated if patient is taki ng sulfasalazine. SGPT/ALT (test code = 26 Units/L 30-65 L Result s of this ALT) assay method ma y be falsely depress ed orelevated if patient is taki ng sulfasalazine. ALKALINE PHOSPHATASE 130 Units/L 50-136 N TOTAL (test code = ALKP) PROTHROMBIN [id number] 21:47:00 Test Item Value Reference Range Interpretation Comments PROTHROMBIN TIME 18.3 SECONDS 9.6-12.3 H PATIENT (test code = PTP) INTERNATIONAL NORMAL 1.60 Recomme nded INR range RATIO (test code = (warfarin therapy): INR) 2.0 - 3.0INR (International Normalized Rati o) should beused w hen interpreting or al anticoaglulant therapy. For at rial fibrillation an d treatment orprevention of deep vein thrombosis . Patients with Palmaz-Olivia s tent *: 2.0 - 3.0 Pa tients with mechanical heart valve *: 2.5 - 3.5 Patients with flex-stent *: 3 .0 - 4.0(*) = historic site administrator's suggested range Is patient on anticoagulants? No AnticoagulantsTHROMBOPLASTIN TIME PARTIAL 2019-11-11 21:47:00 Test Item Value Reference Range Interpretation Comments THROMBOPLASTIN TIME 31.9 SECONDS 22.5-35.3 N *Therap eutic level PARTIAL (test code = for hep eladio: 1.5 - PTT) 2.5 times the average patient value of 30.0 seconds. The aP TT tet should not be used to evaluat e low moleculat weigh t heparin anticoagulant therapy. Is patient on anticoagulants? No AnticoagulantsCBC W/AUTO [id number] 21:35:00 Test Item Value Reference Range Interpretation Comments WHITE BLOOD CELL (test code = 5.27 x10 3/uL 4.80-10.80 N WBC) RED BLOOD CELL (test code = 3.63 x10 6/uL 4.2-5.4 L RBC) HEMOGLOBIN (test code = HGB) 11.0 G/DL 12.0-16.0 L HEMATOCRIT (test code = HCT) 31.9 % 37-47 L MEAN CELL VOLUME (test code = 87.9 FL 81-99 N MCV) MEAN CELL HGB (test code = MCH) 30.3 PG 27-31 N MEAN CELL HGB CONCENTRATION 34.5 G/DL 33-37 N (test code = MCHC) RED CELL DISTRIBUTION WIDTH 13.6 % 11.5-14.5 N (test code = RDW) PLATELET COUNT (test code = 158 x10 3/uL 150-450 N PLT) MEAN PLATELET VOLUME (test code 10.5 FL 7.4-10.4 H = MPV) NEUTROPHIL % (test code = NT%) 65.0 % 42-86 N IMMATURE GRANULOCYTE % (test 0.2 % 0.0-2.0 N code = IG%) LYMPHOCYTE % (test code = LY%) 19.4 % 24-44 L MONOCYTE % (test code = MO%) 12.1 % 0.0-4.0 H EOSINOPHIL % (test code = EO%) 2.5 % 0.0-2.7 N BASOPHIL % (test code = BA%) 0.8 % 0.0-0.5 H NUCLEATED RBC % (test code = 0.0 % 0.0-0.0 N NRBC%) NEUTROPHIL # (test code = NT#) 3.43 x10 3/uL 1.8-7.7 N IMMATURE GRANULOCYTE # (test 0.01 x10 3/uL 0.00-0.03 N code = IG#) LYMPHOCYTE # (test code = LY#) 1.02 x10 3/uL 1.0-4.8 N MONOCYTE # (test code = MO#) 0.64 x10 3/uL 0.0-0.8 N EOSINOPHIL # (test code = EO#) 0.13 x10 3/uL 0.0-0.5 N BASOPHIL # (test code = BA#) 0.04 x10 3/uL 0.0-0.2 N NUCLEATED RBC # (test code = 0.0 X10 3/uL 0.0-0.2 N NRBC#) - XR KNEE 4+V [id number] 21:01:00 Patient Name: VENKAT PANDEY Unit No: [id number] EXAMS: CPT CODE: [id number] XR KNEE 4+V LT 7[address]98 Reason: knee pain 4 views left knee COMPARISON: None INDICATION: Left knee pain FINDINGS: No acute discrete fracture line, dislocation, or focal osseous erosion. Left knee arthroplasty unremarkable in hardware alignment. No large knee effusion. IMPRESSION: No radiographic evidence for acute osseous left knee abnormality. Unremarkable hardware alignment the left knee arthroplasty. at 210 Reported and signed by: Nakul Beltran MD CC: Claudy Mcneil MD; Lavon Mayers MD Technologist: Paula HERNANDES Trscrpt Dt/ (2100)[email or web address] Orig Print D/T: S: 11/11/2019 (2103) [facility] NAME: VENKAT PANDEY [address] PH[address]: [place] [address] : 1950 AGE: 69 SEX: F LOC: [place] PHONE #: [phone] EXAM DATE: 11/11/2019 STATUS: REG ER FAX #: RAD NO: DC Dt: PAGE 1 Signed Report- DUP VEIN UNI/[id number] 18:27:00 Patient Name: VENKAT PANDEY Unit No: [id number] EXAMS: CPT CODE: [id number] DUP VEIN UNI/LTD 30508Oaoovnqndo left lower extremity venous Doppler COMPARISON: Ultrasound lower extremity 06/11/2016 INDICATION: Left lower leg pain and swelling TECHNIQUE: Ultrasound left lower extremity venous Doppler performed. FINDINGS: No sonographic evidence for deep venous thrombosis of the visualized left lower extremity from the CFV to the trifurcation calf veins. Unremarkable compression, augmentation, and colorwaveform interrogation. Incidental reactive/inflammatory left inguinal lymph nodes. IMPRESSION: No s onographic evidence for DVT of the left lower extremity venous vasculature. Electronically Signedby Nakul Beltran MD on 11/11/2019 at 1827 Reported and signed by: Nakul Beltran MD CC: Cluady Adamson; Maicol Ayoub MD Technologist: Mercy REGALADO Trnscrbd D/ (1826) [email or web address] Orig Print D/T: S: 11/11/2019 (183) Probe: [facility] NAME: VENKAT PANDEY [address]: GUILLE.Chelsey - [place] [address] : 1950 AGE: 69 SEX: F LOC: [place] PHONE #: [phone] EXAM DATE: 11/11/2019 STATUS: REG ER FAX #: RAD NO: Page 1 Signed ReportNT PRO- BRAIN NATRIURETIC [id number] 09:35:00 Test Item Value Reference Range Interpretation Comments NT PRO-BRAIN 27 PG/ML 0-125 N Results of this assay NATRIURETIC PEPTI (test meth od may be falsely code = PROBNP) depressed ore levated if patient is t aking high doses of B iotin. COMPREHENSIVE METABOLIC [id number] 09:11:00 Test Item Value Reference Range Interpretation Comments SODIUM (test code = 143 MMOL/L 133-145 N NA) POTASSIUM (test code = 3.9 MMOL/L 3.6-5.2 N K) CHLORIDE (test code = 111 MMOL/L 100-108 H CL) CARBON DIOXIDE (test 24 MMOL/L 22-32 N code = CO2) GLUCOSE (test code = 107 MG/DL 65-99 H Results of this GLU) assay method alaina owen be falsely depress ed orelevated if patient is taki ng sulfasalazine. BLOOD UREA NITROGEN 21 MG/DL 6-20 H (test code = BUN) GLOMERULAR FILTRATION 67 45-104 N Report ing units: RATE (test code = GFR) mL/mi n/1.73m\\S\\2 (Modified MDRD Formula) CREATININE (test code 0.84 MG/DL 0.60-1.00 N = CREAT) TOTAL PROTEIN (test 6.7 G/DL 6.4-8.2 N code = PROT) ALBUMIN (test code = 3.2 G/DL 3.4-5.0 L ALB) GLOBULIN (test code = 3.5 G/DL 1.5-3.8 N GLOB) ALBUMIN/GLOBULIN RATIO 0.9 1.1-2.2 L (test code = A/G) CALCIUM (test code = 9.2 MG/DL 8.7-10.5 N CA) BILIRUBIN TOTAL (test 0.8 MG/DL 0.0-1.0 N code = BILT) SGOT/AST (test code = 35 Units/L 15-37 N Result s of this AST) assay method alaina y be falsely depress ed orelevated if patient is taki ng sulfasalazine. SGPT/ALT (test code = 33 Units/L 30-65 N Result s of this ALT) assay method alaina y be falsely depress ed orelevated if patient is taki ng sulfasalazine. ALKALINE PHOSPHATASE 151 Units/L 50-136 H TOTAL (test code = ALKP) [id number] 09:11:00 Test Item Value Reference Range Interpretation Comments MAGNESIUM (test code = MAG) 2.1 MG/DL 1.8-2.4 N UA RFLX MICROSCOPIC [id number] 09:07:00 Test Item Value Reference Range Interpretation Comments UA COLOR (test code = COLU) YELLOW YELLOW UA APPEARANCE (test code = CLEAR CLEAR APPU) UA GLUCOSE DIPSTICK (test NEGATIVE mg/dL NEGATIVE code = DGLUU) UA BILIRUBIN DIPSTICK (test NEGATIVE NEGATIVE code = BILU) UA KETONE DIPSTICK (test NEGATIVE mg/dL NEGATIVE code = KETU) UA SPECIFIC GRAVITY (test 1.010 1.001-1.035 N code = SGU) UA BLOOD DIPSTICK (test code NEGATIVE NEGATIVE = IVÁN) UA PH DIPSTICK (test code = 8.0 5.5-7.0 H BOB) UA PROTEIN DIPSTICK (test NEGATIVE mg/dL NEGATIVE code = PROU) UA UROBILINOGEN DIPSTICK 4.0 mg/dL NORMAL A (test code = URO) UA NITRITE DIPSTICK (test NEGATIVE NEGATIVE code = MARGE) UA LEUKOCYTE ESTERASE NEGATIVE NEGATIVE DIPSTICK (test code = LEUU) UA COMMENT (test code = VOLUME 10-12 ML COMU) URINE SPECIMEN DESCRIPTION Clean Catch (test code = UASPEC) UA WBC (test code = WBCU) < 10 #/hpf <10 UA SQUAMOUS CELLS (test code 0 - 20 #/lpf <100 = SQU) UA CULTURE NEEDED? (test Criteria not met code = UACULT) Indication for culture: Flank PainURINE SOURCE: Clean CatchUA RFLX MICROSCOPIC [id number] 08:49:00 Test Item Value Reference Range Interpretation Comments UA COLOR (test code = COLU) YELLOW YELLOW UA APPEARANCE (test code = CLEAR CLEAR APPU) UA GLUCOSE DIPSTICK (test NEGATIVE mg/dL NEGATIVE code = DGLUU) UA BILIRUBIN DIPSTICK (test NEGATIVE NEGATIVE code = BILU) UA KETONE DIPSTICK (test code NEGATIVE mg/dL NEGATIVE = KETU) UA SPECIFIC GRAVITY (test 1.010 1.001-1.035 N code = SGU) UA BLOOD DIPSTICK (test code NEGATIVE NEGATIVE = IVÁN) UA PH DIPSTICK (test code = 8.0 5.5-7.0 H BOB) UA PROTEIN DIPSTICK (test NEGATIVE mg/dL NEGATIVE code = PROU) UA UROBILINOGEN DIPSTICK 4.0 mg/dL NORMAL A (test code = URO) UA NITRITE DIPSTICK (test NEGATIVE NEGATIVE code = MARGE) UA LEUKOCYTE ESTERASE NEGATIVE NEGATIVE DIPSTICK (test code = LEUU) UA COMMENT (test code = COMU) VOLUME 10-12 ML URINE SPECIMEN DESCRIPTION Clean Catch (test code = UASPEC) UA WBC (test code = WBCU) #/hpf <10 UA SQUAMOUS CELLS (test code #/lpf <100 = SQU) UA CULTURE NEEDED? (test code = UACULT) Indication for culture: Flank PainURINE SOURCE: Clean CatchCBC W/AUTO DIFF 2019-04-24 08:47:00 Test Item Value Reference Range Interpretation Comments WHITE BLOOD CELL (test code = 4.02 x10 3/uL 4.80-10.80 L WBC) RED BLOOD CELL (test code = 4.25 x10 6/uL 4.2-5.4 N RBC) HEMOGLOBIN (test code = HGB) 13.7 G/DL 12.0-16.0 N HEMATOCRIT (test code = HCT) 39.0 % 37-47 N MEAN CELL VOLUME (test code = 91.8 FL 81-99 N MCV) MEAN CELL HGB (test code = MCH) 32.2 PG 27-31 H MEAN CELL HGB CONCENTRATION 35.1 G/DL 33-37 N (test code = MCHC) RED CELL DISTRIBUTION WIDTH 14.5 % 11.5-14.5 N (test code = RDW) PLATELET COUNT (test code = 159 x10 3/uL 150-450 N PLT) MEAN PLATELET VOLUME (test code 10.0 FL 7.4-10.4 N = MPV) NEUTROPHIL % (test code = NT%) 43.4 % 42-86 N IMMATURE GRANULOCYTE % (test 0.2 % 0.0-2.0 N code = IG%) LYMPHOCYTE % (test code = LY%) 38.8 % 24-44 N MONOCYTE % (test code = MO%) 12.4 % 0.0-4.0 H EOSINOPHIL % (test code = EO%) 4.0 % 0.0-2.7 H BASOPHIL % (test code = BA%) 1.2 % 0.0-0.5 H NUCLEATED RBC % (test code = 0.0 % 0.0-0.0 N NRBC%) NEUTROPHIL # (test code = NT#) 1.74 x10 3/uL 1.8-7.7 L IMMATURE GRANULOCYTE # (test 0.01 x10 3/uL 0.00-0.03 N code = IG#) LYMPHOCYTE # (test code = LY#) 1.56 x10 3/uL 1.0-4.8 N MONOCYTE # (test code = MO#) 0.50 x10 3/uL 0.0-0.8 N EOSINOPHIL # (test code = EO#) 0.16 x10 3/uL 0.0-0.5 N BASOPHIL # (test code = BA#) 0.05 x10 3/uL 0.0-0.2 N NUCLEATED RBC # (test code = 0.0 X10 3/uL 0.0-0.2 N NRBC#) TROPONIN I [id number] 08:40:00 Test Item Value Reference Range Interpretation Comments TROPONIN I RAPID 0.01 NG/ML 0.00-0.08 N Performed b y certified (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 - XR CHEST 1 [id number] 08:28:00 Patient Name: VENKAT PANDEY Unit No: [id number] EXAMS: CPT CODE: [id number] XR CHEST 1 V 68395 Reason: weakness - XR CHEST 1 V 04/24/2019 8:10 AM A frontal portable chest compared with 02/02/2019 shows no focal infiltrating clear pleural spaces. Heart size is upper limits of normal. The film is expiratory phase which may be contributing to the appearance. Bones are unremarkable. IMPRESSION: 1. Borderline cardiomegaly. at 0828 Reported and signed by: Dustin Caceres MD CC: Vadim Whyte DO; Claudy Mcneil MD Technologist: Jeniffer Morgan RT Trscrpt Dt/ (827)[email or web address] Orig Print D/T: S: 04/24/2019 (830) [facility] NAME: VENKAT PANDEY [address]: Vadim [place] [address] : 1950 AGE: 68 SEX: F LOC: [place] PHONE #: [phone] EXAM DATE: 04/24/2019 STATUS:REG ER FAX #: RAD NO: DC Dt: PAGE 1 Signed [id number] 12:28:00 RUN DATE: 02/04/19 [place] [facility] LIVE PAGE 1 RUN TIME: 1228 Specimen Inquiry RUN USER: INTERFACE - PATIENT: VENKAT PANDEY LOC: YudiYSDC U #: [id number] AGE/SX: 68/F ROOM: RE02/02/[facility] DR: June Mills MD : 50 BED: DIS: STATUS: [facility] TLOC: SPEC #: [id number] RECD: 02/02/19 STATUS: JUN REAlbetro #: [id number] REGAN: 02/02/19 [facility] DR: June Mills MD ENTERED: 02/02/19 SP TYPE:SURGICAL OTHR DR: Claudy Mcneil MD ORDERED: MARY NARAYAN COPIES TO: June Mills MD [address] [place], [place] [id number] Claudy Mcneil MD [address] [place] [address] HISTOLOGY: TISSUE ID BLK PCS DRE LEV PROCEDURE DISPOSITION ____ ___ ___ ___ GASTRIC BIOPSY A 1 2 S CTR RUSS CARTER ICD CODES: K29.90 - GASTRODUODENITIS, UNSPECIFIED, WITHOUT BLEEDING PROCEDURES: SYLVAIN (Incomplete) MARY CARTER (Incomplete) TISSUES: A. GASTRIC BIOPSY - POLYPS CLINICAL HISTORY GERD FINAL DIAGNOSISBIOPSY OF GASTRIC POLYP: HYPERPLASTIC POLYP. JOB#: [id number] GROSS DESCRIPTION The case is received in one formalin container labeled with the patient's name and source. The specimen is designated "gastric polyp" and consists of a single, 0.4 cm pink-davila soft tissue fragment, submitted in toto in one block. CONTINUED ON NEXT PAGE RUN DATE: 02/04/19 [place] [facility] LIVE PAGE 2 RUN TIME: 1228 Specimen Inquiry RUN USER: INTERFACE SPEC #: [id number] PATIENT: VENKAT PANDEY #[id number] (Continued)------ ------ GROSS DESCRIPTION (Continued) JOB#: [id number] MICROSCOPIC DESCRIPTION Sections and step sections show a gastric hyperplastic polyp characterized by hyperplastic foveolar epithelium. No malignancy is seen. A modified Carter's stain is performed and is negative for diagnostic Helicobacter organisms. JOB#: [id number] SPECIMEN PROCESSING * PROCESSING PERFORMED AT [facility]. SURGERY INFORMATION Surgery date 02/02/19 Surgeon(s): Signed SIGNATURE ON FILE Claudy St 02/04/19 1228 END OF REPORT - XR CHEST 2 [id number] 08:01:00 Patient Name: VENKAT PANDEY Unit No: [id number] EXAMS: CPT CODE: [id number] XR CHEST 2 V 81845 Reason: FOR BARIATRIC SURG - XR CHEST 2 V 02/02/2019 7:02 AM Indication: Preop reflux FINDINGS: Comparison is made to the films of 08/21/2018. There has been no significant radiographic change. The heart, lung hutchinson and pleura show no change since the prior examination. Cholecystectomy. IMPRESSION: Stablechest. at 0801 Reported and signed by: Popeye Casas MD CC: June Mills MD; Claudy Mcneil MD Technologist: Christ Graff RT Trscrpt Dt / (0801)[facility]: [facility] [address]: June Pak [place] [address] : 1950 AGE: 68 SEX: F [facility] #: [phone] EXAM DATE: 02/02/2019 STATUS: REG [facility] FAX #: RAD NO: DC Dt: PAGE 1 Signed Report COMPREHENSIVE METABOLIC [id number] 06:58:00 Test Item Value Reference Range Interpretation Comments SODIUM (test code = 144 MMOL/L 133-145 N NA) POTASSIUM (test code = 3.6 MMOL/L 3.6-5.2 N K) CHLORIDE (test code = 109 MMOL/L 100-108 H CL) CARBON DIOXIDE (test 28 MMOL/L 22-32 N code = CO2) GLUCOSE (test code = 97 MG/DL 65-99 N Results of this GLU) assay method ma y be falsely depress ed orelevated if patient is taki ng sulfasalazine. BLOOD UREA NITROGEN 19 MG/DL 6-20 N (test code = BUN) GLOMERULAR FILTRATION 70 45-104 N Report ing units: RATE (test code = GFR) mL/mi n/1.73m\\S\\2 (Modified MDRD Formula) CREATININE (test code 0.81 MG/DL 0.60-1.00 N = CREAT) TOTAL PROTEIN (test 6.5 G/DL 6.4-8.2 N code = PROT) ALBUMIN (test code = 3.1 G/DL 3.4-5.0 L ALB) GLOBULIN (test code = 3.4 G/DL 1.5-3.8 N GLOB) ALBUMIN/GLOBULIN RATIO 0.9 1.1-2.2 L (test code = A/G) CALCIUM (test code = 8.8 MG/DL 8.7-10.5 N CA) BILIRUBIN TOTAL (test 0.8 MG/DL 0.0-1.0 N code = BILT) SGOT/AST (test code = 22 Units/L 15-37 N Result s of this AST) assay method ma y be falsely depress ed orelevated if patient is taki ng sulfasalazine. SGPT/ALT (test code = 32 Units/L 30-65 N Result s of this ALT) assay method ma y be falsely depress ed orelevated if patient is taki ng sulfasalazine. ALKALINE PHOSPHATASE 128 Units/L 50-136 N TOTAL (test code = ALKP) CBC W/AUTO [id number] 06:36:00 Test Item Value Reference Range Interpretation Comments WHITE BLOOD CELL (test code = 4.10 x10 3/uL 4.80-10.80 L WBC) RED BLOOD CELL (test code = 4.13 x10 6/uL 4.2-5.4 L RBC) HEMOGLOBIN (test code = HGB) 13.1 G/DL 12.0-16.0 N HEMATOCRIT (test code = HCT) 39.0 % 37-47 N MEAN CELL VOLUME (test code = 94.4 FL 81-99 N MCV) MEAN CELL HGB (test code = MCH) 31.7 PG 27-31 H MEAN CELL HGB CONCENTRATION 33.6 G/DL 33-37 N (test code = MCHC) RED CELL DISTRIBUTION WIDTH 13.7 % 11.5-14.5 N (test code = RDW) PLATELET COUNT (test code = 168 x10 3/uL 150-450 N PLT) MEAN PLATELET VOLUME (test code 10.1 FL 7.4-10.4 N = MPV) NEUTROPHIL % (test code = NT%) 47.1 % 42-86 N IMMATURE GRANULOCYTE % (test 0.0 % 0.0-2.0 N code = IG%) LYMPHOCYTE % (test code = LY%) 34.9 % 24-44 N MONOCYTE % (test code = MO%) 13.4 % 0.0-4.0 H EOSINOPHIL % (test code = EO%) 3.9 % 0.0-2.7 H BASOPHIL % (test code = BA%) 0.7 % 0.0-0.5 H NUCLEATED RBC % (test code = 0.0 % 0.0-0.0 N NRBC%) NEUTROPHIL # (test code = NT#) 1.93 x10 3/uL 1.8-7.7 N IMMATURE GRANULOCYTE # (test 0.00 x10 3/uL 0.00-0.03 N code = IG#) LYMPHOCYTE # (test code = LY#) 1.43 x10 3/uL 1.0-4.8 N MONOCYTE # (test code = MO#) 0.55 x10 3/uL 0.0-0.8 N EOSINOPHIL # (test code = EO#) 0.16 x10 3/uL 0.0-0.5 N BASOPHIL # (test code = BA#) 0.03 x10 3/uL 0.0-0.2 N NUCLEATED RBC # (test code = 0.0 X10 3/uL 0.0-0.2 N NRBC#)
[2023-03-15 15:54] LABS: Absolute Lymphocytes (CBC) 1.6 K/uL (0.7-4.9); Hematocrit 35.7 % (36.0-45.0); Lymphocytes % 38.6 % (15.3-44.8); MCV 83.2 fL (80-100); MPV 8.5 fL (7.6-11.3); RBC Red Blood Cell Count 4.29 M/uL (3.86-4.86)
[2023-03-15 16:03] LABS: Albumin 2.8 g/dL (3.4-5.0); Bilirubin Total 0.4 mg/dL (0.2-1.0); Potassium 3.7 mEq/L (3.5-5.1); Protein, Total 6.5 g/dL (6.4-8.2)
[2023-03-15] MEDS ORDERED: CEFAZOLIN SODIUM 1 GM/VIAL ONE (16:33)
[2023-03-15] MEDS ORDERED: NA CHLORIDE 0.9% 100 ML ONE (16:33)
--- NOTE | 2023-03-15 17:01 | RAD REPORT ---
EXAM DESCRIPTION: US - Extremity Venous Uni Ltd - 03/15/2023 4:55 pm CLINICAL HISTORY: Pain;Swelling Leg swelling and edema. COMPARISON: No comparisons FINDINGS: Left lower extremity venous system was interrogated with Doppler technique. Normal flow, c ompressibility and augmentation was noted. There is no DVT present. IMPRESSION: No evidence of left lower extremity deep venous thrombosis.
--- NOTE | 2023-03-15 17:13 | ER ---
Nurse's Notes [facility] Name: Adelaide Estrada Age: 72 yrs Sex: Female : 1950 Arrival Date: 03/15/2023 Time: 14:16 Bed 14 Private MD: Diagnosis: Cellulitis of left lower limb Presentation: 03/15 14:36 Chief complaint: Left lower leg swelling and redness x 2 days. Coronavirus screen: At this time, the client does not indicate any symptoms associated with coronavirus-19. Ebola Screen: No symptoms or risks identified at this time. Initial Sepsis Screen: Does the patient meet any 2 criteria? HR > 90 bpm. No. Patient's initial sepsis screen is negative. Does the patient have a suspected source of infection? No. Patient's initial sepsis screen is negative. Risk Assessment: Do you want to hurt yourself or someone else? Patient reports no desire to harm self or others. Onset of symptoms was March 13, 2023. 14:36 Method Of Arrival: Ambulatory hb 14:36 Acuity: JUAN CARLOS 3 hb Historical: - Allergies: 14:37 Codeine; hb 14:37 Pyridium; hb - PMHx: 14:37 COPD; Thyroid Disease; PA; RA; hb 15:00 Deep vein thrombosis; Hypertensive disorder; Depressive disorder; Anxiety; eh3 Hypercholesterolemia; Stress incontinence; Kidney stone; Anemia; Basal cell carcinoma; - PSHx: 14:37 Knee - Left; Stent - Left Leg; hb 15:00 Appendectomy; Cholecystectomy; Hysterectomy; eh3 - Immunization history:: Adult Immunizations up to date. - Social history:: Smoking status: unknown. Screenin:30 [facility] ED Fall Risk Assessment (Adult) Score/Fall Risk Level. Abuse screen: Denies eh3 threats or abuse. Denies injuries from another. Nutritional screening: No deficits noted. Tuberculosis screening: No symptoms or risk factors identified. Assessment: 14:30 General: Appears in no apparent distress. uncomfortable, Behavior is calm, cooperative, eh3 appropriate for age. Pain: Complains of pain in left leg Pain does not radiate. Neuro: Level of Consciousness is awake, alert, obeys commands, Oriented to person, place, time, situation. Cardiovascular: Capillary refill < 3 seconds Patient's skin is warm and dry. Edema is 2+ to right ankle and right foot is 3+ to left ankle and left foot. Respiratory: Reports cough that is persistent Airway is patent Respiratory effort is even, unlabored, Respiratory pattern is regular, symmetrical. GI: Abdomen is round non-distended. : No signs and/or symptoms were reported regarding the genitourinary system. EENT: No signs and/or symptoms were reported regarding the EENT system. Derm: Skin is pink, warm \T\ dry. Musculoskeletal: Circulation, motion, and sensation intact. 15:30 Reassessment: Patient appears in no apparent distress at this time. Patient and/or eh3 family updated on plan of care and expected duration. Pain level reassessed. Patient is alert, oriented x 3, equal unlabored respirations, skin warm/dry/pink. 16:30 Reassessment: Patient appears in no apparent distress at this time. Patient and/or eh3 family updated on plan of care and expected duration. Pain level reassessed. Patient is alert, oriented x 3, equal unlabored respirations, skin warm/dry/pink. 16:34 Reassessment: Awaiting second set of blood cultures before Cefazolin can be eh3 administered. Unsuccessful collection attempts x2. 16:40 Reassessment: 2nd set of blood cultures cancelled and antibiotics started per Dr. godfrey Khalil. Vital Signs: 14:36 BP 153 / 61; Pulse 95; Resp 16; Temp 99.4(TE); Pulse Ox 97% on R/A; Weight 102.97 kg; hb Height 5 ft. 5 in. ; Pain 8/10; 15:30 BP 115 / 84; Pulse 86; Resp 16; Pulse Ox 97% on R/A; eh3 16:30 BP 138 / 73; Pulse 88; Resp 16; Pulse Ox 98% on R/A; eh3 14:36 Body Mass Index 37.77 (102.97 kg, 165.1 cm) hb 14:36 Pain Scale: Adult hb ED Course: 14:18 Patient arrived in ED. ts1 14:27 Arm band placed on. mb9 14:27 Placed in gown. Bed in low position. Call light in reach. Side rails up X 1. Client mb9 placed on continuous cardiac and pulse oximetry monitoring. NIBP monitoring applied. 14:35 Matt Khalil MD is Attending Physician. kdr 14:37 Triage completed. hb 15:15 Tami Osorio, RN is Primary Nurse. eh3 15:30 First set of blood cultures drawn by me. Inserted saline lock: 22 gauge in right eh3 antecubital area, using aseptic technique. Blood collected. 16:57 US Extremity Venous Unilateral Ltd In Process Unspecified. EDMS 17:35 No provider procedures requiring assistance completed. IV discontinued, intact, eh3 bleeding controlled, No redness/swelling at site. Pressure dressing applied. Administered Medications: 16:40 Drug: ceFAZolin IVPB 1 grams Route: IVPB; Site: right antecubital; eh3 17:10 Follow up: Response: No adverse reaction; IV Status: Completed infusion; IV Intake: eh3 100ml Medication: 17:35 VIS not applicable for this client. eh3 Intake: 17:10 IV: 100ml; Total: 100ml. eh3 Outcome: 17:12 Discharge ordered by . kdr 17:35 Discharged to home ambulatory. eh3 17:35 Condition: stable 17:35 Discharge instructions given to patient, Instructed on discharge instructions, follow up and referral plans. medication usage, Demonstrated understanding of instructions, follow-up care, medications, Prescriptions given X 1. 17:41 Patient left the ED. eh3 Signatures: Dispatcher [employer] EDMS Matt Khalil MD MD kdr Edith Horn RN RN Tami Osorio, ADDY DALY 3 Myrna May RN RN mb9 Manuela Brunner PAS PAS ts1
--- NOTE | 2023-03-15 17:13 | EDPHYS ---
Physician Documentation [facility] Name: Adelaide Estrada Age: 72 yrs Sex: Female : 1950 Arrival Date: 03/15/2023 Time: 14:16 Bed 14 Private MD: ED Physician Matt Khalil HPI: 03/15 17:08 This 72 yrs old Female presents to ER via Ambulatory with complaints of Swollen kdr legs/celulitus. 17:08 Patient has noticed redness and swelling to her left lower extremity for the past 2 kdr days. Onset: The symptoms/episode began/occurred gradually, 2 day(s) ago. Severity of symptoms: At their worst the symptoms were very mild in the emergency department the symptoms are unchanged. The patient has not experienced similar symptoms in the past. The patient has not recently seen a physician. Historical: - Allergies: 14:37 Codeine; hb 14:37 Pyridium; hb - PMHx: 14:37 COPD; Thyroid Disease; RI; RA; hb 15:00 Deep vein thrombosis; Hypertensive disorder; Depressive disorder; Anxiety; eh3 Hypercholesterolemia; Stress incontinence; Kidney stone; Anemia; Basal cell carcinoma; - PSHx: 14:37 Knee - Left; Stent - Left Leg; hb 15:00 Appendectomy; Cholecystectomy; Hysterectomy; eh3 - Immunization history:: Adult Immunizations up to date. - Social history:: Smoking status: unknown. ROS: 17:08 Constitutional: Negative for fever, chills, and weight loss, Eyes: Negative for injury, kdr pain, redness, and discharge, ENT: Negative for injury, pain, and discharge, Neck: Negative for injury, pain, and swelling, Respiratory: Negative for shortness of breath, cough, wheezing, and pleuritic chest pain, Abdomen/GI: Negative for abdominal pain, nausea, vomiting, diarrhea, and constipation, Back: Negative for injury and pain, Neuro: Negative for headache, weakness, numbness, tingling, and seizure activity. Psych: Negative for depression, anxiety, suicide ideation, homicidal ideation, and hallucinations. 17:08 Skin: Positive for cellulitis, swelling, of the lateral aspect of left calf, left lateral ankle, left calf, left Achilles, medial aspect of left calf, left medial ankle, left graves and anterior aspect of left ankle. Exam: 17:08 Constitutional: This is a well developed, well nourished patient who is awake, alert, kdr and in no acute distress. 17:08 Skin: cellulitis, that is minimal, that is mild, irregular, patchy, on the lateral aspect of left calf, left lateral ankle, left calf, left Achilles, medial aspect of left calf, left medial ankle, left graves and anterior aspect of left ankle. Vital Signs: 14:36 BP 153 / 61; Pulse 95; Resp 16; Temp 99.4(TE); Pulse Ox 97% on R/A; Weight 102.97 kg; hb Height 5 ft. 5 in. ; Pain 8/10; 15:30 BP 115 / 84; Pulse 86; Resp 16; Pulse Ox 97% on R/A; eh3 16:30 BP 138 / 73; Pulse 88; Resp 16; Pulse Ox 98% on R/A; eh3 14:36 Body Mass Index 37.77 (102.97 kg, 165.1 cm) hb 14:36 Pain Scale: Adult hb MDM: 16:44 Patient medically screened. sn 17:08 Data reviewed: lab test result(s), radiologic studies. kdr 03/15 15:10 Order name: CBC with Diff; Complete Time: 16:08 kdr 03/15 15:10 Order name: CMP; Complete Time: 16:08 kdr 03/15 15:10 Order name: Blood Culture Adult (2) kdr 03/15 15:10 Order name: US Extremity Venous Unilateral Ltd; Complete Time: 17:03 kdr Administered Medications: 16:40 Drug: ceFAZolin IVPB 1 grams Route: IVPB; Site: right antecubital; eh3 17:10 Follow up: Response: No adverse reaction; IV Status: Completed infusion; IV Intake: eh3 100ml Disposition Summary: 03/15/23 17:12 Discharge Ordered Location: Home kdr Problem: new kdr Symptoms: have improved kdr Condition: Stable kdr Diagnosis - Cellulitis of left lower limb kdr Followup: kdr - With: Private Physician - When: 2 - 3 days - Reason: If symptoms return, Further diagnostic work-up, Recheck today's complaints, Continuance of care, Re-evaluation by your physician Discharge Instructions: - Discharge Summary Sheet kdr - Cellulitis, Adult, [id number] kdr Forms: - Medication Reconciliation Form kdr - Thank You Letter kdr - Antibiotic Education kdr Prescriptions: - cephalexin 500 mg Oral capsule - take 1 capsule by ORAL route 3 times per day for 7 days; 21 capsule; Refills: kdr 0, Product Selection Permitted Signatures: Dispatcher [employer] EDMS Matt Khalil MD MD kdr Natalia Bermudez, MOLD CAR PUSHER-C MOLD [employer] PUSHER-Csnw Edith Horn, RN RN Tami Osorio RN RN eh3
[2023-03-15 18:03] VITALS: TEMP 99.4
[2023-03-15 18:06] VITALS: BP 138/73; O2SAT 98
== END 2023-03-15 17:41 | disposition home or self-care (01) ==
LOC: ER 14:16
DX: L03.116 Cellulitis of left lower limb (principal); Z86.718 Personal history of other venous thrombosis and embolism; Z88.5 Allergy status to narcotic agent; Z88.8 Allergy status to other drugs, medicaments and biological substances
CPT/HCPCS: 96365; 87040; 85025; 36415; 80053; 93971; 99284; J0690